=== PATIENT | male | born 1940 | race Caucasian/White ===

== ENCOUNTER 2022-04-01 16:31 | Inpatient (IN) | payer MEDICARE, OTHER ==
[~2022-04-01] VITALS: Ht 180.3 cm; Wt 90.7 kg
[2022-04-01] MEDS ORDERED: AMLODIPINE PO (16:46)
[2022-04-01] MEDS ORDERED: LISINOPRIL PO (16:46)
--- NOTE | 2022-04-01 17:45 | NUR ---
Pt arrived with c/o abdominal pain, 4/10, n/v and dizziness x 2D. Denies headache. Pt is also having hiccups. Seen by Dr. Schroeder for MSE.
--- NOTE | 2022-04-01 17:45 | NUR ---
Pt had BM in the bathroom, black tarry stools. made aware.
--- NOTE | 2022-04-01 17:50 | NUR ---
Pt unable to provide urine specimen, pt stated 'I cannot pee right now'. Provided urinal at the bedside.
--- NOTE | 2022-04-01 17:50 | NUR ---
ERMD ordered CT Abdomen/Pelvis w/ contrast and explained the risks and benefits to the pt. Pt verbally consented.
[2022-04-01] MEDS ORDERED: ONDANSETRON 4 MG/2 ML VIAL ONE (17:53)
[2022-04-01] MEDS ORDERED: ONDANSETRON 4 MG/2 ML VIAL IV ONE (18:00)
[2022-04-01] MEDS ORDERED: IV NORMAL SALINE 1000 ML BAG IV ONE ×3 (18:00→20:00)
[2022-04-01 18:02] LABS: HEMATOCRIT 25.4 % (36.7-47.1); MEAN CORPUSCULAR HEMOGLOBIN 34.3 uug (23.8-33.4); MEAN CORPUSCULAR VOLUME 102.4 fL (73.0-96.2); PLATELET COUNT (AUTO) 243 K/uL (152-348)
[2022-04-01 18:18] LABS: ALANINE AMINOTRANSFERASE 15 U/L (16-63); ALKALINE PHOSPHATASE 61 U/L (50-136); ASPARTATE AMINOTRANSFERASE 8 U/L (15-37); BILIRUBIN,DIRECT 0.2 mg/dL (0.0-0.2); BILIRUBIN,TOTAL 0.5 mg/dL (0.2-1.0); CARBON DIOXIDE 21 mmol/L (21-32); CHLORIDE 107 mmol/L (98-107); CREATININE 1.5 mg/dL (0.6-1.3); GLUCOSE 177 mg/dL (74-106); LIPASE 67 U/L (73-393); POTASSIUM 3.9 mmol/L (3.5-5.1); TOTAL PROTEIN, SERUM 5.1 g/dL (6.4-8.2); UREA NITROGEN, BLOOD 71 mg/dL (7-18)
--- NOTE | 2022-04-01 18:25 | NUR ---
Son of the pt signed the CT Abd/Pelvis w/ Contrast consent form.
[2022-04-01] MEDS ORDERED: CEFTRIAXONE /D5W 50ML IVPB **ER PYXIS IV ONE (18:30)
[2022-04-01] MEDS ORDERED: METRONIDAZOLE 500 MG/NS 100ML 100 ML IV ONE (18:30)
[2022-04-01] MEDS ORDERED: CEFTRIAXONE 1 G in IV DEXTROSE 5% 50 ML IV ONE (18:30)
[2022-04-01] MEDS ORDERED: IV NORMAL SALINE 250 ML IV ONE (18:47)
[2022-04-01] MEDS ORDERED: SWABABLE VALVE TRANSFER SET EA MC ONE (18:47)
[2022-04-01] MEDS ORDERED: IOHEXOL 300MG/ML 100 ML INFUS..BTL ONE (18:47)
[2022-04-01] MEDS ORDERED: MAGNESIUM SULFATE 2 GM in IV DEXTROSE 5% 100 ML IV ONE (19:00)
--- NOTE | 2022-04-01 19:00 | NUR ---
Back from CT.
--- NOTE | 2022-04-01 19:36 | NUR ---
Endorsed to Fawn ANDERSON.
--- NOTE | 2022-04-01 20:25 | NUR ---
Dr. Posey this is pt's primary doctor
--- NOTE | 2022-04-01 20:25 | NUR ---
pt. in bed, assisted in the bathroom to urinate.
[2022-04-01 20:28] LABS: *BILIRUBIN,URIN NEGATIVE (NEGATIVE); *BLOOD, URINE NEGATIVE (NEGATIVE); *CLARITY,URINE CLEAR (CLEAR); *COLOR,URINE YELLOW (YELLOW); *KETONES,URINE 1+ (NEGATIVE); *UROBILINOGEN,URINE 0.2 E.U./dl (NORMAL); NITRITE, URINE NEGATIVE (NEGATIVE); PH,URINE 5.5 (5.0-8.0); UGLUCOSE NEGATIVE (NEGATIVE)
[2022-04-01 20:30] LABS: LEUKOCYTE ESTERASE ,URINE NEGATIVE (NEGATIVE)
[2022-04-01] MEDS ORDERED: MAGNESIUM SULFATE/D5W 100 ML ONE ×2 (20:39→23:04)
--- NOTE | 2022-04-01 20:45 | NUR ---
Ct in process
--- NOTE | 2022-04-01 23:02 | NUR ---
Paged Howard doyle button cutting machine operator, waiting for Olena Pablo NP to call back.
[2022-04-01] MEDS ORDERED: diphenhydrAMINE 50 MG/1 ML VIAL IM ONE (23:15)
[2022-04-01] MEDS ORDERED: chlorproMAZINE 50 MG/2 ML AMPUL IM ONE (23:15)
--- NOTE | 2022-04-01 23:20 | NUR ---
Olena Pablo ELECTRICAL DISCHARGE MACHINE OPERATOR regasification plant operator for [facility] accepted patient.
[2022-04-01] MEDS ORDERED: MAGNESIUM HYDROXIDE 30 ML LIQUID UDC PO PRN (23:45)
[2022-04-01] MEDS ORDERED: ACETAMINOPHEN 325 MG TABLET PO PRN (23:45)
[2022-04-01] MEDS ORDERED: REMEDY ESSENTIAL ZINC PASTE 113 GM TP PRN (23:45)
[2022-04-01] MEDS ORDERED: ONDANSETRON 4 MG/2 ML VIAL IV PRN (23:45)
[2022-04-02] VITALS (15 sets, daily range): BP systolic 100–145; BP diastolic 48–72
[2022-04-02] MEDS: IV D5 1/2 NS 1000 ML 1,000 ML IV PRN (00:26)
[2022-04-02] MEDS ORDERED: FLUCONAZOLE 200 MG/NS 100ML IV 100 MG in PREMIXED 1 EACH IV SCH (00:30)
[2022-04-02] MEDS: METRONIDAZOLE 500 MG/NS 100ML 500 MG in PREMIXED 1 EACH IV SCH ×4 (00:35→21:25)
--- NOTE | 2022-04-02 00:40 | NUR ---
transferred to tele RM 316 with JUSTIN Dey.
[2022-04-02] MEDS ORDERED: chlorproMAZINE INJ 50 MG in IV NORMAL SALINE 50 ML IM ONE (01:15)
[2022-04-02] MEDS ORDERED: diphenhydrAMINE 50 MG/1 ML VIAL IV PRN (01:15)
[2022-04-02] MEDS ORDERED: FLUCONAZOLE 200 MG/100 ML PIGGYBACK ONE (01:20)
[2022-04-02] MEDS ORDERED: chlorproMAZINE 50 MG/2 ML AMPUL IM ONE (01:30)
[2022-04-02] MEDS ORDERED: diphenhydrAMINE 50 MG/1 ML VIAL IM ONE (01:30)
[2022-04-02] MEDS ORDERED: chlorproMAZINE 50 MG/2 ML AMPUL ONE (02:30)
--- NOTE | 2022-04-02 03:27 | NUR ---
Patient admitted to room 316 from ER per le with diagnosis SIRS and history HTN, Throid. AAOX3, BRP, O2 2lpm via n/c.
[2022-04-02 07:12] LABS: MEAN CORPUSCULAR HEMOGLOBIN 34.3 uug (23.8-33.4); MEAN CORPUSCULAR VOLUME 101.5 fL (73.0-96.2); PLATELET COUNT (AUTO) 191 K/uL (152-348)
[2022-04-02 07:27] LABS: CREATININE 1.2 mg/dL (0.6-1.3); MAGNESIUM 1.9 mg/dL (1.8-2.4); PHOSPHOROUS 2.7 mg/dL (2.5-4.9); POTASSIUM 3.7 mmol/L (3.5-5.1)
[2022-04-02 07:36] LABS: THYROID STIMULATING HORMONE 1.047 mIU/mL (0.358-3.740)
[2022-04-02] MEDS: PANTOPRAZOLE SODIUM 40 MG VIAL IV SCH ×2 (08:10→21:02)
[2022-04-02] MEDS ORDERED: CEFTRIAXONE 1 G in IV DEXTROSE 5% 50 ML IV SCH (09:00)
--- NOTE | 2022-04-02 13:03 | NUR ---
Received a call from lab (Juliocesar) reported critical lab value of HGB 6.8 and HCT [address] Fraire and received order for administrating 1 unit of PRBC.
[2022-04-02] MEDS ORDERED: LEVO50TA PO (14:33)
--- NOTE | 2022-04-02 17:27 | NUR ---
Pt. is receiving blood transfusion. Noted to be stable and tolerating the transfusion. Vital signs within normal limit. Compliance with the care given. No C/O dizziness, headache, nausea, vomiting and pain noted. Will keep monitoring the patient.
[2022-04-02] MEDS: CEFTRIAXONE 1 G in IV DEXTROSE 5% 50 ML IV SCH (18:24)
--- NOTE | 2022-04-02 20:00 | NUR ---
Received patient lying in bed. Asleep at this time. Appears comfortable. In no apparent distress. No signs or symptoms of pain or SOB. IV Site on L hand 20 g intact and patent. NSR on tele with HR of 64/min. All needs attended. Safety measure initiated and call light within reached.
[2022-04-03] VITALS: BP 126/59
[2022-04-03] MEDS: IV D5 1/2 NS 1000 ML 1,000 ML IV PRN (03:20)
[2022-04-03 04:00] VITALS: BP 96/46
[2022-04-03] MEDS: METRONIDAZOLE 500 MG/NS 100ML 500 MG in PREMIXED 1 EACH IV SCH ×3 (05:14→22:16)
--- NOTE | 2022-04-03 05:18 | NUR ---
Slept intermittently. Antibiotics given as ordered. No adverse reaction noted. No nausea or vomiting noted. IV site intact and patent. Remained NPO. No complaints as of this time. All needs attended. Safety precaution maintained.
[2022-04-03] MEDS: FLUCONAZOLE 200 MG/NS 100ML IV 100 MG in PREMIXED 1 EACH IV SCH (06:11)
[2022-04-03] MEDS: LEVOTHYROXINE SODIUM 50 MCG TABLET PO SCH (06:16)
[2022-04-03] MEDS: LISINOPRIL 20 MG TABLET PO SCH (09:00)
[2022-04-03] MEDS ORDERED: LISINOPRIL 20 MG TABLET PO SCH (09:00)
[2022-04-03] MEDS: AMLODIPINE 10 MG TABLET PO SCH (09:00)
[2022-04-03] MEDS: PANTOPRAZOLE SODIUM 40 MG VIAL IV SCH ×2 (09:49→21:09)
[2022-04-03 11:30] VITALS: BP 110/60
[2022-04-03 12:30] LABS: HEMATOCRIT 22.3 % (36.7-47.1); MEAN CORPUSCULAR HEMOGLOBIN 34.3 uug (23.8-33.4); MEAN CORPUSCULAR VOLUME 100.8 fL (73.0-96.2); PLATELET COUNT (AUTO) 171 K/uL (152-348)
[2022-04-03 15:07] VITALS: BP 111/55
[2022-04-03] MEDS ORDERED: LIDOCAINE-MPF 2% 5 ML VIAL IJ ONE (18:00)
[2022-04-03] MEDS ORDERED: PROPOFOL 200 MG/20 ML BOTTLE IV ONE (18:00)
[2022-04-03] MEDS: CEFTRIAXONE 1 G in IV DEXTROSE 5% 50 ML IV SCH (19:12)
[2022-04-03 20:00] VITALS: BP 105/46
[2022-04-04] VITALS: BP 94/49
[2022-04-04 04:00] VITALS: BP 109/76
[2022-04-04] MEDS: IV D5 1/2 NS 1000 ML 1,000 ML IV PRN (04:20)
[2022-04-04] MEDS: FLUCONAZOLE 200 MG/NS 100ML IV 100 MG in PREMIXED 1 EACH IV SCH (05:49)
[2022-04-04] MEDS: METRONIDAZOLE 500 MG/NS 100ML 500 MG in PREMIXED 1 EACH IV SCH ×3 (06:03→21:15)
[2022-04-04] MEDS: LEVOTHYROXINE SODIUM 50 MCG TABLET PO SCH (06:19)
--- NOTE | 2022-04-04 06:34 | NUR ---
SLEPT WELL. KEPT NPO ORDERED. ON TELE SR. CALL LIGHT IN REACH. ALL NEEDS ATTENDED, WILL CONTINUE TO MONITOR.
[2022-04-04 07:34] LABS: CREATININE 1.1 mg/dL (0.6-1.3); MAGNESIUM 1.9 mg/dL (1.8-2.4); PHOSPHOROUS 2.7 mg/dL (2.5-4.9); POTASSIUM 3.6 mmol/L (3.5-5.1)
[2022-04-04] MEDS: AMLODIPINE 10 MG TABLET PO SCH (08:49)
[2022-04-04] MEDS: PANTOPRAZOLE SODIUM 40 MG VIAL IV SCH ×2 (08:49→21:14)
[2022-04-04] MEDS: LISINOPRIL 20 MG TABLET PO SCH (08:50)
[2022-04-04 09:09] LABS: HEMATOCRIT 23.1 % (36.7-47.1); MEAN CORPUSCULAR HEMOGLOBIN 35.1 uug (23.8-33.4); MEAN CORPUSCULAR VOLUME 101.6 fL (73.0-96.2); PLATELET COUNT (AUTO) 171 K/uL (152-348)
[2022-04-04 12:00] VITALS: BP 122/55
[2022-04-04 16:00] VITALS: BP 118/64
--- NOTE | 2022-04-04 17:22 | NUR ---
Pt. has been stable during the shift. Able to make the need known. No acute distress noted. call light within reach. Pt. is taking by OR nurses for EGD now.
--- NOTE | 2022-04-04 17:43 | NUR ---
I had a call from OR that PT. stated he had some soup at 1700 before the EGD. There is a sign of NPO on the patient door and I educated the family member and the patient on 04/02/2022 and on 04/04/2022 about the meaning of NPO. OR nurse said she will find out from the family member if they gave anything to pt. to eat.
[2022-04-04] MEDS: CEFTRIAXONE 1 G in IV DEXTROSE 5% 50 ML IV SCH (18:44)
--- NOTE | 2022-04-04 18:47 | NUR ---
Pt. came back from EGD procedure and received report from nurse Guera. Pt. will start regular diet. Pt. noted to be stable. Will keep monitoring the patient.
[2022-04-04] MEDS: SUCRALFATE 1 G/10 ML LIQUID UDC GT SCH (20:28)
--- NOTE | 2022-04-05 02:00 | NUR ---
PATIENT VERY UNCOOPERATIVE THROUGHOUT THE NIGHT. PATIENT INFORMED NUMEROUS TIMES TO NOT TOUCH THE IV FLUIDS. PATIENT CONTINUOUSLY KEEPS TURNING OFF THE MACHINE. INFORMED PATIENT IN THE IMPORTANCE OF THE IVF. PATIENT DOESN'T NOT WANT THEM AND REFUSED. BILINGUAL SECRETARY NOTIFIED.
--- NOTE | 2022-04-05 04:01 | NUR ---
BENITA FROM NUCLEAR MEDICINE WENT TO PATIENTS ROOM TO EXPLAIN PROCEDURE. PATIENT BECAME VERY HOSTILE AND AGITATED THAT HE WAS DISTURBED. PATIENT EDUCATED ON THE PROCEDURE AND STILL REFUSED. PATIENT DOES NOT WANT TO TEST PERFORMED AND CONTINUED TO REFUSE. NOTIFIED KNIFE GRINDER AND WILL NOTIFY GI MD IN AM.
[2022-04-05] MEDS: METRONIDAZOLE 500 MG/NS 100ML 500 MG in PREMIXED 1 EACH IV SCH ×3 (05:04→21:20)
[2022-04-05] MEDS: FLUCONAZOLE 200 MG/NS 100ML IV 100 MG in PREMIXED 1 EACH IV SCH (05:40)
[2022-04-05] MEDS: LEVOTHYROXINE SODIUM 50 MCG TABLET PO SCH (06:40)
[2022-04-05 07:03] LABS: HEMATOCRIT 22.1 % (36.7-47.1); MEAN CORPUSCULAR HEMOGLOBIN 35.2 uug (23.8-33.4); MEAN CORPUSCULAR VOLUME 101.3 fL (73.0-96.2); PLATELET COUNT (AUTO) 183 K/uL (152-348)
[2022-04-05 07:26] LABS: CREATININE 1.1 mg/dL (0.6-1.3); MAGNESIUM 1.9 mg/dL (1.8-2.4); PHOSPHOROUS 2.7 mg/dL (2.5-4.9); POTASSIUM 3.6 mmol/L (3.5-5.1)
[2022-04-05] MEDS: LISINOPRIL 20 MG TABLET PO SCH (09:00)
[2022-04-05] MEDS: AMLODIPINE 10 MG TABLET PO SCH (09:00)
[2022-04-05] MEDS: PANTOPRAZOLE SODIUM 40 MG VIAL IV SCH ×2 (09:20→20:41)
[2022-04-05] MEDS: SUCRALFATE 1 G/10 ML LIQUID UDC GT SCH ×4 (10:48→20:53)
[2022-04-05 11:14] VITALS: BP 91/61
[2022-04-05 12:00] VITALS: BP 122/55
[2022-04-05 15:25] VITALS: BP 108/41
[2022-04-05] MEDS: CEFTRIAXONE 1 G in IV DEXTROSE 5% 50 ML IV SCH (16:57)
--- NOTE | 2022-04-05 18:58 | NUR ---
Pt. AAOX3. No SOB at this time. Pt. is relaxed and cooperative. Family was at bedside. Routine PO and IV meds given and pt tolerated it well. Pt. now in regular diet.
[2022-04-05 20:00] VITALS: BP 117/52
[2022-04-06] VITALS: BP 101/47
[2022-04-06 04:00] VITALS: BP 144/52
[2022-04-06] MEDS: FLUCONAZOLE 200 MG/NS 100ML IV 100 MG in PREMIXED 1 EACH IV SCH (05:21)
[2022-04-06] MEDS: IV D5 1/2 NS 1000 ML 1,000 ML IV PRN (05:35)
--- NOTE | 2022-04-06 05:56 | NUR ---
Slept intermittently. IV site infiltrated. Removed IV on left hand. Warm compress provided. Kept hand elevated. Reinserted IV on right hand 20 g intact and patent. Antibiotics given as ordered. No adverse reaction noted. Denies any pain or discomfort. All needs attended. Call light within reach. Safety precautions maintained.
[2022-04-06] MEDS: METRONIDAZOLE 500 MG/NS 100ML 500 MG in PREMIXED 1 EACH IV SCH (07:08)
[2022-04-06] MEDS: LEVOTHYROXINE SODIUM 50 MCG TABLET PO SCH (07:09)
[2022-04-06] MEDS: SUCRALFATE 1 G/10 ML LIQUID UDC GT SCH ×2 (07:10→12:29)
[2022-04-06 08:10] LABS: CREATININE 1.3 mg/dL (0.6-1.3); MAGNESIUM 1.8 mg/dL (1.8-2.4); PHOSPHOROUS 2.8 mg/dL (2.5-4.9); POTASSIUM 3.5 mmol/L (3.5-5.1)
[2022-04-06 08:12] LABS: HEMATOCRIT 23.1 % (36.7-47.1); MEAN CORPUSCULAR HEMOGLOBIN 35.6 uug (23.8-33.4); MEAN CORPUSCULAR VOLUME 100.7 fL (73.0-96.2); PLATELET COUNT (AUTO) 178 K/uL (152-348)
[2022-04-06] MEDS: PANTOPRAZOLE SODIUM 40 MG VIAL IV SCH (09:27)
[2022-04-06] MEDS: LISINOPRIL 20 MG TABLET PO SCH (09:30)
[2022-04-06] MEDS: AMLODIPINE 10 MG TABLET PO SCH (09:30)
[2022-04-06] MEDS ORDERED: SUCR1ORA GT (12:20)
[2022-04-06] MEDS ORDERED: PANT40TA49 PO (12:20)
[2022-04-06] MEDS ORDERED: FLUC100T PO (12:20)
[2022-04-06] MEDS ORDERED: FERR325T28 PO ×2 (12:21→12:24)
[2022-04-06 13:36] VITALS: BP 115/63
[2022-04-06] MEDS ORDERED: METRONIDAZOLE 500 MG TABLET PO SCH (14:00)
[2022-04-06 15:50] VITALS: BP 122/48
[2022-04-06] MEDS ORDERED: SUCRALFATE 1 G TABLET PO SCH (16:30)
[2022-04-06] MEDS ORDERED: PANTOPRAZOLE SODIUM 40 MG TABLET.DR PO SCH (17:00)
--- NOTE | 2022-04-06 18:00 | NUR ---
Pt is in no acute distress. Discharge instructions given to pt, caregiver, and at bedside- verbalized understanding. Pt denies any c/o pain. No sob noted. Pt to follow up with vaccinations with his PMD. IV taken out. Belongings given back to patient.
--- NOTE | 2022-04-06 18:10 | NUR ---
Pt sent home with FWW.
[2022-04-07] MEDS ORDERED: FLUCONAZOLE 100 MG TABLET PO SCH (09:00)
== END 2022-04-06 18:10 | disposition home health service (06) | DRG 377 ==
LOC: ER 16:31 → TELE3 23:40
PROVIDERS: ADMIT Nurse Practitioner Acute Care; ATTEND Nurse Practitioner Acute Care
PROC: 30233N1 Transfusion of Nonautologous Red Blood Cells into Peripheral Vein, Percutaneous Approach (ICD-10-PCS; principal; 2022-04-02)
PROC: 0DB68ZX Excision of Stomach, Via Natural or Artificial Opening Endoscopic, Diagnostic (ICD-10-PCS; 2022-04-04)
DX: K29.71 Gastritis, unspecified, with bleeding (principal); N17.0 Acute kidney failure with tubular necrosis; D62 Acute posthemorrhagic anemia; E03.9 Hypothyroidism, unspecified; E11.9 Type 2 diabetes mellitus without complications; E88.9 Metabolic disorder, unspecified; I10 Essential (primary) hypertension; K20.90 Esophagitis, unspecified without bleeding; K44.9 Diaphragmatic hernia without obstruction or gangrene; F17.210 Nicotine dependence, cigarettes, uncomplicated; N40.0 Benign prostatic hyperplasia without lower urinary tract symptoms; Z79.4 Long term (current) use of insulin; D46.9 Myelodysplastic syndrome, unspecified; M89.8X9 Other specified disorders of bone, unspecified site; K80.20 Calculus of gallbladder without cholecystitis without obstruction
CPT/HCPCS: 36415; 70030-TC; 70450; 71045; 71250; 83605; 83690; 83735; 84100; 84153; 84443; 84484; 85025; 85730; 86850; 86900; 86901; 86920; 87040; 88313-TC; 88342; C9113; G0378; J0696; J1200; J1450; J2405; J3230; J3475; J3490; J7040; P9016; Q9967